=== PATIENT | female | born 1970 ===

== ENCOUNTER 2016-07-20 22:06 | Emergency (ER) | payer OTHER ==
[2016-07-20 22:31] VITALS: BP 114/75
--- NOTE | 2016-07-20 22:41 | UC ---
Back Pain HPI - HPI Summary HPI Summary: The patient comes in today for: 1. Lower right back pain: Onset: Last night Palliative/provocative: Nothing makes it better or worse. Quality: Dull ache and some sharpness. Region: Lower right back --no radiation. Severity: 8/10 Time: Constant. Associated symptoms: Event: She got up from the bed last night and she felt like something was "different." Subsequent to this, the pain got worse. Previous illness: She has had similar pain on and off for the last few years. Previous treatment: She would take ibuprofen which would take care of it. She has this at home. She has never used a muscle relaxant. There are times when the muscle pain will grab her. Walking up the steps, she feels like her back will give out and then a sudden onset of sharp pain. Bowel/bladder control problems: None. Fever: None. Unexpected weight loss: None. NUmbness/weakness: None. LMP: now. * - History of Current Complaint Chief Complaint: UCBackPain Stated Complaint: BACK PAIN Time Seen by Provider: 07/20/16 22:36 Hx Last Menstrual Period: now - Allergies/Home Medications Allergies/Adverse Reactions: Allergies Allergy/AdvReac Type Severity Reaction Status Date / Time No Known Allergies Allergy Verified 07/20/16 22:31 Home Medications: Home Medications Ibuprofen TAB* [Motrin TAB* 600 MG] 07/20/16 [History] PMH/Surg Hx/FS Hx/Imm Hx Previously Healthy: No - Low back pain:. Endocrine History Of: Denies: Diabetes, Thyroid Disease, Hyperthyroidism, Hypothyroidism, Dyslipidemia Cardiovascular History Of: Denies: Cardiac Disorders, Hypertension, Pacemaker/ICD, Myocardial Infarction , Congestive Heart Failure, Atrial Fibrillation, Deep Vein Thrombosis, Bleeding Disorders Respiratory History Of: Denies: COPD, Asthma, Bronchitis, Pneumonia, Pulmonary Embolism GI/ History Of: Denies: Gastroesophageal Reflux, Ulcer, Gastrointestinal Bleed, Gall Bladder Disease, Kidney Stones, Diverticulitis, Renal Disease, Urosepsis Neurological History Of: Denies: TIA, CVA, Dementia, Seizures, Migraine Psychological History Of: Denies: Anxiety, Depression, Bipolar Disorder, Schizophrenia, Post Traumatic Stress Disorder Cancer History Of: Denies: Lung Cancer, Colorectal Cancer, Breast Cancer, Prostate Cancer, Cervical Cancer Other History Of: Negative For: HIV, Hepatitis B, Hepatitis C, Anticoagulant Therapy - Surgical History Surgical History: None - Family History Known Family History: Negative: Cardiac Disease, Hypertension - Social History Occupation: Employed Full-time Alcohol Use: None Substance Use Type: None Smoking Status (MU): Never Smoked Tobacco Review of Systems Constitutional: Negative Skin: Negative Eyes: Negative ENT: Negative Respiratory: Negative Cardiovascular: Negative Gastrointestinal: Negative Genitourinary: Negative Musculoskeletal: Arthralgia, Myalgia All Other Systems Reviewed And Are Negative: Yes Physical Exam Triage Information Reviewed: Yes Appearance: Well-Appearing, No Pain Distress - But she has guarded movement and psychomotor slowing., Well-Nourished Vital Signs: Initial Vital Signs Temp 97.9 F 07/20/16 22:26 Pulse 76 07/20/16 22:26 Resp 12 07/20/16 22:26 BP 114/75 07/20/16 22:26 Pulse Ox 98 07/20/16 22:26 Vital Signs Reviewed: Yes Eyes: Positive: Conjunctiva Clear. Negative: Discharge ENT: Positive: Hearing grossly normal. Negative: Pharyngeal erythema, Nasal congestion, Nasal drainage, TM bulging, TM dull, TM red, Tonsillar swelling, Tonsillar exudate Dental: Negative: Gross Decay/Caries @, Dental Fracture @ Neck: Positive: Supple, Nontender, No Lymphadenopathy. Negative: Nuchal Rigidity Respiratory: Positive: Chest non-tender, Lungs clear, No respiratory distress, No accessory muscle use. Negative: Crackles, Rhonchi Cardiovascular: Positive: RRR, No Murmur Abdomen Description: Positive: Nontender, No Organomegaly, Soft. Negative: Distended, Guarding Musculoskeletal: Positive: Strength Intact - There was discomfort to palpation of the lower right lumbar paraspinous musculature. There is no SLR. There is no CVA tenderness., No Edema, Other: - There was discomfort to Neurological: Positive: Alert, Muscle Tone Normal Psychological: Positive: Age Appropriate Behavior, Consolable Skin: Negative: rashes, breakdown Back Pain Course/Dx - Course Course Of Treatment: Patient was told of her treatment options. She only wanted a muscle relaxant at this time. She states she will use ibuprofen that she has at home. - Differential Dx/Diagnosis Provider Diagnoses: Chronic lower back pain with acute right-sided exacerbation. Discharge - Discharge Plan Condition: Stable Disposition: HOME Patient Education Materials: Low Back Strain (ED) Referrals: Non Staff,Doctor [Primary Care Provider] - 1 Week (Please see your primary care provider in a week to see how well you are doing. If you get worse, please be seen sooner in the ER or through us.)
[2016-07-20] MEDS ORDERED: Carisoprodol TAB* 350 MG PO ONE (22:51)
== END 2016-07-20 23:04 | disposition home or self-care (01) ==
LOC: UCEAST 22:06
DX: M54.5 Low back pain (principal); G89.29 Other chronic pain
CPT/HCPCS: 99202; A9270-GY; G0463